=== PATIENT | male | born 1995 | race Two or more races ===

== ENCOUNTER 2024-10-07 15:53 | Emergency (ER) | payer OTHER ==
[~2024-10-07] VITALS: Ht 180.3 cm; Wt 88.5 kg
[2024-10-07 16:24] VITALS: BP 129/75; O2SAT 100
[2024-10-07 18:16] LABS: HEMATOCRIT 45.8 % (39.0-48.0); HEMOGLOBIN 15.5 g/dL (13-16.00); MEAN CELL VOLUME 82.5 fL (80.0-100.00); MEAN CORPUSCULAR HEMOGLOBIN 27.8 pg (27.00-32.0); MEAN CORPUSCULAR HGB CONC 33.7 g/dl (32.0-36.0); PLATELET COUNT 193 K/uL (150-450); RED BLOOD COUNT 5.55 M/uL (4.00-6.00); RED CELL DISTRIBUTION WIDTH 13.4 % (11.5-14.5)
== END 2024-10-07 20:15 | disposition home or self-care (01) ==
LOC: ER 15:56
PROVIDERS: Preventive Medicine Public Health & General Preventive Medicine
DX: B34.9 Viral infection, unspecified (principal); Z91.013 Allergy to seafood; Z20.822 Contact with and (suspected) exposure to COVID-19